=== PATIENT | male | born 1995 | race African-American/Black ===

== ENCOUNTER 2016-09-14 16:06 | Emergency (ER) | payer SELFPAY ==
[~2016-09-14 16:06] MED LIST: VENTOLIN HFA INH
[2016-09-14 17:34] LABS: INFLUENZA A SCREEN NEGATIVE (NEGATIVE); INFLUENZA B SCREEN NEGATIVE (NEGATIVE)
== END 2016-09-14 18:28 | disposition home or self-care (01) ==
LOC: ER 16:06
PROVIDERS: Nurse Practitioner
DX: J06.9 Acute upper respiratory infection, unspecified (principal)
CPT/HCPCS: 71020; 87804; 99283; J1885